=== PATIENT | male | born 1980 | race Caucasian/White ===

== ENCOUNTER 2019-07-21 18:43 | Emergency (ER) | payer OTHER ==
[~2019-07-21] VITALS: Ht 170.2 cm; Wt 77.0 kg
[2019-07-21] MEDS ORDERED: LIDOCAINE 5% PATCH TOP NR (20:42)
[2019-07-21] MEDS ORDERED: ACETAMINOPHEN 500MG TABLET PO NR (20:45)
[2019-07-21 23:50] VITALS: BP 121/75
== END 2019-07-21 23:53 | disposition home or self-care (01) ==
LOC: ER 18:43
DX: R10.9 Unspecified abdominal pain (principal); V09.9XXA Pedestrian injured in unspecified transport accident, initial encounter; Y93.89 Activity, other specified; Y92.89 Other specified places as the place of occurrence of the external cause; Y99.8 Other external cause status
CPT/HCPCS: 71250; 74176; 99285